=== PATIENT | female | born 1965 | race African-American/Black ===

== ENCOUNTER 2022-03-06 04:33 | Day surgery (SDC) | payer BC, OTHER ==
[2022-03-02 10:18] VITALS: BMI 44.1
[2022-03-06] MEDS ORDERED: ACETAMINOPHEN 325 MG TABLET (FP) PO PRN (06:44)
[2022-03-06] MEDS ORDERED: oxyCODONE HCL 5 MG TABLET PO PRN (06:44)
[2022-03-06] MEDS ORDERED: IBUPROFEN 400 MG TABLET (FP) PO PRN (06:44)
[2022-03-06 07:21] VITALS: RESP 18
[2022-03-06] MEDS ORDERED: DEXAMETHASONE SOD PHOSPHATE 4 MG/1 ML VIAL ONE (07:41)
[2022-03-06] MEDS ORDERED: LIDOCAINE HCL/PF 2% SDV 5ML VIAL ONE (07:41)
[2022-03-06] MEDS ORDERED: KETOROLAC TROMETHAMINE 30 MG/1 ML VIAL ONE (07:41)
[2022-03-06] MEDS ORDERED: SUCCINYLCHOLINE CHLORIDE 200 MG/10 ML SYRINGE ONE (07:42)
[2022-03-06] MEDS ORDERED: MIDAZOLAM HCL 2 MG/2 ML SINGLE DOSE VIAL ONE (07:42)
[2022-03-06] MEDS ORDERED: PROPOFOL 20 ML ONE ×2 (07:42)
[2022-03-06] MEDS ORDERED: ONDANSETRON 4 MG/2 ML VIAL IVPUSH PRN (10:13)
[2022-03-06] MEDS ORDERED: LACTATED RINGERS SOLUTION 1,000 ML IV SCH (10:15)
[2022-03-06 12:05] VITALS: BP 142/68; PULSE 64; TEMP 98.7
== END 2022-03-06 12:00 | disposition home or self-care (01) ==
LOC: JASU-SURG 04:33
PROVIDERS: ATTEND Obstetrics & Gynecology
PROC: 0UDB7ZX Extraction of Endometrium, Via Natural or Artificial Opening, Diagnostic (ICD-10-PCS; 2022-03-06)
PROC: 0UJD8ZZ Inspection of Uterus and Cervix, Via Natural or Artificial Opening Endoscopic (ICD-10-PCS; 2022-03-06)
PROC: 0UB98ZZ Excision of Uterus, Via Natural or Artificial Opening Endoscopic (ICD-10-PCS; principal; 2022-03-06 09:00)
DX: D25.0 Submucous leiomyoma of uterus (principal); N84.0 Polyp of corpus uteri
CPT/HCPCS: 86850; 86900; 86901; 88305-TC; 94760

== ENCOUNTER 2023-06-04 05:07 | Day surgery (SDC) | payer BC, OTHER ==
[2023-05-31 16:35] VITALS: BMI 44.2
[2023-06-04] MEDS ORDERED: PHENAZOPYRIDINE HCL 100 MG TABLET (FP) PO ONE ×2 (06:30→06:45)
[2023-06-04] MEDS ORDERED: GABAPENTIN 300 MG CAPSULE ONE (06:41)
[2023-06-04] MEDS ORDERED: PHENAZOPYRIDINE HCL 100 MG TABLET (FP) ONE (06:41)
[2023-06-04] MEDS ORDERED: GABAPENTIN 300 MG CAPSULE PO ONE ×2 (06:45→07:00)
[2023-06-04] MEDS ORDERED: ACETAMINOPHEN 1000 MG/100 ML BAG IVPB ONE (07:00)
[2023-06-04] MEDS ORDERED: CEFAZOLIN 2 GM in DEXTROSE 5%-WATER - 100 ML IVPB ONE (07:00)
[2023-06-04] MEDS ORDERED: MIDAZOLAM HCL 2 MG/2 ML SINGLE DOSE VIAL ONE (07:21)
[2023-06-04] MEDS ORDERED: BUPIVACAINE HCL/PF 0.25% (2.5MG/ML) 10 ML VIAL ONE (07:22)
[2023-06-04] MEDS ORDERED: DEXAMETHASONE SOD PHOSPHATE 10 MG/1 ML VIAL ONE (07:22)
[2023-06-04] MEDS ORDERED: BUPIVACAINE LIPOSOME/PF (EXPAREL) 266 MG/20 ML VIAL ONE (07:24)
[2023-06-04] MEDS ORDERED: TRANEXAMIC ACID 1000 MG/10 ML VIAL IVPUSH ONE (07:30)
[2023-06-04] MEDS ORDERED: HYDROmorphone HCl 2 MG/ML VIAL ONE (07:36)
[2023-06-04] MEDS ORDERED: FENTANYL CITRATE/PF 50 MCG/ML VIAL ONE ×5 (07:36→10:48)
[2023-06-04] MEDS ORDERED: SEVOFLURANE 250 ML BTL ONE (07:36)
[2023-06-04] MEDS ORDERED: PROPOFOL 40 ML ONE (07:37)
[2023-06-04] MEDS ORDERED: LIDOCAINE HCL/PF 2% SDV 5ML VIAL ONE (07:37)
[2023-06-04] MEDS ORDERED: ROCURONIUM BROMIDE 50 MG/5 ML SYRINGE ONE ×2 (07:37→08:05)
[2023-06-04] MEDS ORDERED: ONDANSETRON 4 MG/2 ML VIAL ONE (07:37)
[2023-06-04] MEDS ORDERED: TRANEXAMIC ACID 1000 MG/10 ML VIAL ONE (07:38)
[2023-06-04] MEDS ORDERED: ceFAZolin SODIUM 1 GM VIAL ONE (07:38)
[2023-06-04] MEDS ORDERED: ceFAZolin SODIUM 1 GM VIAL IVPB ONE (08:00)
[2023-06-04] MEDS ORDERED: SUGAMMADEX SODIUM 200 MG/2 ML VIAL ONE ×2 (08:05→09:31)
[2023-06-04] MEDS ORDERED: KETOROLAC TROMETHAMINE 30 MG/1 ML VIAL ONE (08:38)
[2023-06-04] MEDS ORDERED: ACETAMINOPHEN INJECTION 100 ML IVPB ONE (08:38)
[2023-06-04] MEDS ORDERED: BUPIVACAINE HCL/PF 0.5% (5 MG/ML) 30 ML VIAL IJ ONE (09:10)
[2023-06-04] MEDS ORDERED: IBUPROFEN 800 MG/8 ML IJ IVPB PRN (09:42)
[2023-06-04] MEDS ORDERED: ACETAMINOPHEN 325 MG TABLET (FP) PO PRN (09:42)
[2023-06-04] MEDS ORDERED: BISACODYL 5 MG TABLET.DR (FP) PO PRN (09:42)
[2023-06-04] MEDS ORDERED: ONDANSETRON 4 MG/2 ML VIAL IVPUSH PRN ×2 (09:42→09:45)
[2023-06-04] MEDS ORDERED: SIMETHICONE 80 MG TAB.CHEW (FP) PO PRN (09:42)
[2023-06-04] MEDS ORDERED: oxyCODONE HCL 5 MG TABLET PO PRN ×4 (09:42→09:45)
[2023-06-04] MEDS ORDERED: DOCUSATE SODIUM 100 MG CAPSULE (FP) PO PRN (09:42)
[2023-06-04] MEDS ORDERED: HYDROCHLOROTHIAZIDE 12.5 MG CAPSULE (FP) PO SCH (09:45)
[2023-06-04] MEDS ORDERED: PROMETHAZINE HCL 25 MG/1 ML VIAL IVPB PRN (09:45)
[2023-06-04] MEDS ORDERED: NEBIVOLOL 2.5 MG TABLET (FP) PO SCH (10:00)
[2023-06-04] MEDS: LACTATED RINGERS SOLUTION 1,000 ML IV SCH ×2 (10:32→18:07)
[2023-06-04] MEDS ORDERED: NEBIVOLOL 5 MG TABLET (FP) PO SCH (12:11)
[2023-06-04 15:54] VITALS: RESP 18
[2023-06-04] MEDS: CEFAZOLIN 1 GM in DEXTROSE 5%-WATER - 50 ML IVPB SCH ×2 (15:55→23:34)
[2023-06-04 18:37] LABS: HEMOGLOBIN 13.2 GM/dL (10.7-15.3); MCH 28.9 pg (25.7-33.7); MCHC 32.1 g/dl (32.0-36.0); MEAN CELL VOLUME 89.8 fl (80-96); MEAN PLT VOLUME 9.6 fl (7.5-11.1); PLATELET COUNT 292 10^3/uL (134-434); RBC 4.56 M/mm3 (3.60-5.2); RDW 13.8 % (11.6-15.6); WHITE BLOOD COUNT 11.6 K/mm3 (4.0-10.0)
[2023-06-04 19:28] LABS: POTASSIUM 4.2 mmol/L (3.5-5.1)
[2023-06-04 19:30] LABS: CALCIUM 9.6 mg/dL (8.5-10.1)
[2023-06-04 19:32] LABS: BLOOD UREA NITROGEN 10.2 mg/dL (7-18)
[2023-06-04 19:34] LABS: CREATININE 1.1 mg/dL (0.55-1.3)
[2023-06-05] MEDS: LACTATED RINGERS SOLUTION 1,000 ML IV SCH (03:02)
[2023-06-05 07:32] LABS: HEMATOCRIT 35.9 % (32.4-45.2); HEMOGLOBIN 12.3 GM/dL (10.7-15.3); MCH 30.1 pg (25.7-33.7); MCHC 34.2 g/dl (32.0-36.0); PLATELET COUNT 264 10^3/uL (134-434); RBC 4.08 M/mm3 (3.60-5.2); WHITE BLOOD COUNT 11.2 K/mm3 (4.0-10.0)
[2023-06-05 07:56] LABS: POTASSIUM 4.1 mmol/L (3.5-5.1)
[2023-06-05 08:02] LABS: BLOOD UREA NITROGEN 11.4 mg/dL (7-18); CALCIUM 8.9 mg/dL (8.5-10.1)
[2023-06-05 08:06] LABS: CREATININE 0.9 mg/dL (0.55-1.3)
[2023-06-05] MEDS: CEFAZOLIN 1 GM in DEXTROSE 5%-WATER - 50 ML IVPB SCH (08:48)
[2023-06-05 09:38] VITALS: BP 130/80; PULSE 77; TEMP 97.9
[2023-06-05] MEDS ORDERED: ENOXAPARIN NA (PORCINE) 40 MG/0.4 ML DISP.SYRIN SQ SCH (10:00)
[2023-06-05] MEDS ORDERED: ACETAMINOPHEN 500 MG TABLET (FP) PO PRN (10:50)
== END 2023-06-05 12:35 | disposition home or self-care (01) ==
LOC: JASUSAT 05:07 → J3W 11:27 → JASUSAT 06-05 12:35
PROVIDERS: ATTEND Obstetrics & Gynecology
PROC: 0UT9FZZ Resection of Uterus, Via Natural or Artificial Opening With Percutaneous Endoscopic Assistance (ICD-10-PCS; principal; 2023-06-04 07:30)
PROC: 0UB24ZZ Excision of Bilateral Ovaries, Percutaneous Endoscopic Approach (ICD-10-PCS; 2023-06-04 07:30)
DX: C54.1 Malignant neoplasm of endometrium (principal); N83.8 Other noninflammatory disorders of ovary, fallopian tube and broad ligament; N83.291 Other ovarian cyst, right side; N83.292 Other ovarian cyst, left side
CPT/HCPCS: 58552; 58662; S2900; 36415; 80048; 85027; 86850; 86900; 86901; 88304-TC; 88305-TC; 88309-TC; 88342-TC; 94010; 94760; J1100